=== PATIENT | male | born 1965 | race Two or more races ===

== ENCOUNTER 2017-06-12 08:57 | Outpatient (CLI) | payer OTHER ==
[~2017-06-12 08:57] MED LIST: HYZAAR 100-121 UDTAB
== END 2017-06-12 09:08 | disposition home or self-care (01) ==
LOC: RAD 08:57
DX: I10 Essential (primary) hypertension (principal)

== ENCOUNTER 2017-06-14 10:20 | Outpatient (CLI) | payer OTHER | END 2017-06-14 10:45 | disposition home or self-care (01) | LOC: NUCLEAR 10:20 | DX: I25.111 Atherosclerotic heart disease of native coronary artery with angina pectoris with documented spasm (principal); Z98.85 Transplanted organ removal status | CPT/HCPCS: 78452; 93017; A9500 ==

== ENCOUNTER 2018-12-30 08:36 | Outpatient (CLI) | payer OTHER | END 2018-12-30 11:43 | disposition home or self-care (01) | LOC: SONOGRAMA 08:36 | DX: C61 Malignant neoplasm of prostate (principal); N40.0 Benign prostatic hyperplasia without lower urinary tract symptoms ==

== ENCOUNTER 2019-02-05 08:38 | Outpatient (CLI) | payer OTHER | END 2019-02-05 08:57 | disposition home or self-care (01) | LOC: NUCLEAR 08:38 | DX: C61 Malignant neoplasm of prostate (principal) | CPT/HCPCS: 78306; A9503 ==

== ENCOUNTER 2019-02-14 08:21 | Outpatient (CLI) | payer OTHER | END 2019-02-14 08:32 | disposition home or self-care (01) | LOC: TOM 08:21 | DX: C61 Malignant neoplasm of prostate (principal) ==

== ENCOUNTER 2019-03-20 08:00 | Outpatient (CLI) | payer OTHER | END 2019-03-20 11:30 | disposition home or self-care (01) | LOC: NUCLEAR 08:00 | DX: I20.1 Angina pectoris with documented spasm (principal) | CPT/HCPCS: 78452; 93017; A9500; J0153 ==

== ENCOUNTER 2019-03-28 08:15 | Outpatient (CLI) | payer OTHER | END 2019-03-28 08:25 | disposition home or self-care (01) | LOC: LAB 08:15 | DX: C61 Malignant neoplasm of prostate (principal) ==

== ENCOUNTER → 2019-03-28 | Outpatient (CLI) | payer OTHER | END | disposition home or self-care (01) | LOC: MRI 07:15 → NUCLEAR 12:49 | DX: C61 Malignant neoplasm of prostate (principal) ==

== ENCOUNTER → 2019-03-28 | Outpatient (CLI) | payer OTHER | END | disposition home or self-care (01) | LOC: NUCLEAR 03-21 13:00 → MRI 07:24 → NUCLEAR 07:24 | DX: C61 Malignant neoplasm of prostate (principal); I67.89 Other cerebrovascular disease | CPT/HCPCS: 72197 ==

== ENCOUNTER 2021-06-27 07:57 | Outpatient (CLI) | payer OTHER | END 2021-06-27 08:10 | disposition home or self-care (01) | LOC: NUCLEAR 07:57 | DX: C61 Malignant neoplasm of prostate (principal) | CPT/HCPCS: 78306; A9503 ==

== ENCOUNTER 2022-07-11 15:22 | Emergency (ER) | payer OTHER ==
[~2022-07-11] VITALS: Ht 167.6 cm; Wt 90.7 kg
[2022-07-11] MEDS ORDERED: BRILINTA90 MG (16:19)
[2022-07-11] MEDS ORDERED: SIMVASTATIN5 MG (16:19)
[2022-07-11] MEDS ORDERED: TOPROL XL50 M1 (16:19)
[2022-07-11] MEDS ORDERED: COZAAR100 MG (16:19)
== END 2022-07-11 22:17 | disposition home or self-care (01) ==
LOC: ER 15:22
DX: I95.9 Hypotension, unspecified (principal); C32.9 Malignant neoplasm of larynx, unspecified; I25.2 Old myocardial infarction; I11.9 Hypertensive heart disease without heart failure; Z20.822 Contact with and (suspected) exposure to COVID-19